=== PATIENT | male | born 1985 | race Caucasian/White ===

== ENCOUNTER 2025-09-12 09:13 | Outpatient (CLI) | payer OTHER, SELFPAY ==
--- NOTE | ~2025-09-12 | MR_ITS ---
EXAM/PROCEDURE: MR lumbar spine wo con HISTORY: Back pain COMPARISON: None available. TECHNIQUE: Standard technique for multiplanar lumbar spine MRI without contrast FINDINGS: Mild degenerative changes present throughout the lumbar spine. No acute or aggressive bony process seen. Probable small posterior annular tear L5-S1. The conus tapers normally at L1. Level specific findings as follows: T12-L1: Minimal degenerative change L1-2: Moderately severe desiccation and disc space narrowing but no spinal canal stenosis or discrete disc protrusion. Mild to moderate right and mild left-sided neural foraminal narrowing. L2-3: Moderately severe posterior spondylosis but no spinal canal stenosis or discrete disc protrusion. Mild to moderate bilateral neural foraminal narrowing. L3-4: No spinal canal stenosis or discrete disc protrusion. Mild to moderate bilateral neural foraminal narrowing. L4-5: No spinal canal stenosis or discrete disc protrusion. Mild bilateral neural foraminal narrowing. L5-S1: Moderately severe desiccation and disc space narrowing and posterior disc bulging with probable posterior annular tear seen on image 8 series 3, and image 28 series 6. No discrete disc protrusion or spinal canal stenosis. Mild to moderate bilateral neural foraminal narrowing. IMPRESSION: Multilevel degenerative changes with level specific findings as detailed above. No spinal canal stenosis or discrete disc protrusion. Reviewed, dictated and finalized at location A. [facility] [employer]
--- NOTE | ~2025-09-12 | MR_ITS ---
EXAMINATION: MR cervical spine wo con DATE: 09/12/2025 09:59 INDICATION: Neck pain TECHNIQUE: Magnetic resonance imaging (MRI) of the cervical spine was performed without intravenous contrast. Sequences included sagittal T2-weighted FSE, sagittal T2-weighted FS FSE, sagittal T1-weighted FSE, axial MERGE, and axial T2-weighted FSE. COMPARISON: None FINDINGS: Degenerative changes involving disc spaces uncovertebral joints and pedicles throughout the cervical spine. No acute or aggressive bony or soft tissue process seen. The spinal cord appears normal in signal with no discrete medullary cord lesions or gross myelopathic changes. Visualized portion of the posterior fossa unremarkable. Level specific findings as follows: C2-3: Mild degenerative change C3-4: Mild to moderate left and mild right-sided neural foraminal narrowing. No spinal canal stenosis or discrete disc protrusion. C4-5: Mild to moderate posterior spondylosis with mild to moderate bilateral neural foraminal narrowing left worse than right. No spinal canal stenosis or discrete disc protrusion. C5-6: Mild to moderate left and mild right-sided neural foraminal narrowing. Note disc protrusion or spinal canal stenosis. C6-7: More advanced broad-based disc bulging/posterior spondylosis resulting in more advanced, moderately severe bilateral neural foraminal narrowing left worse than right. No discrete disc protrusion or spinal canal stenosis. C7-T1: Mild degenerative changes. IMPRESSION: Multilevel degenerative changes with no spinal canal stenosis or discrete disc protrusion. See level specific findings as detailed above. Reviewed, dictated and finalized at location A. [employer] LE[employer]ER IMPRESSION: Multilevel degenerative changes with no spinal canal stenosis or di screte disc protrusion. See level specific findings as detailed above.
== END 2025-09-12 09:14 | disposition home or self-care (01) ==
LOC: MICIMG 09:15
PROVIDERS: PCP Emergency Medicine; Visit Provider Emergency Medicine
DX: M51.369 Other intervertebral disc degeneration, lumbar region without mention of lumbar back pain or lower extremity pain (principal); M50.30 Other cervical disc degeneration, unspecified cervical region
CPT/HCPCS: 72141; 72148